=== PATIENT | female | born 1995 | race Caucasian/White ===

== ENCOUNTER 2022-05-17 09:20 | Outpatient (CLI) | payer OTHER ==
[~2022-05-17] VITALS: Ht 170.2 cm; Wt 93.6 kg
[2022-05-17] MEDS ORDERED: ACET500P3 PO (10:20)
[2022-05-17] MEDS ORDERED: ACET-897 PO (10:20)
[2022-05-17 10:22] VITALS: BP 106/56
[2022-05-17] MEDS ORDERED: PRENTAB9 PO (10:22)
[2022-05-17 11:20] LABS: APPEARANCE, URINE HAZY (CLEAR); BACTERIA, URINE AUTO 1+ (NEGATIVE); BILIRUBIN, URINE AUTO NEGATIVE (NEGATIVE); BLOOD, URINE BLOOD NEGATIVE (NEGATIVE); COLOR, URINE YELLOW (YELLOW); GLUCOSE, URINE (UA) AUTO NEGATIVE (NEGATIVE); KETONE, URINE AUTO 1+ mg/dL (NEGATIVE); LEUKOCYTE ESTERASE, URINE AUTO 3+ (NEGATIVE); MUCUS, URINE SMALL (NEGATIVE); NITRITE, URINE AUTO NEGATIVE (NEGATIVE); PROTEIN, URINE AUTO NEGATIVE (NEGATIVE); RBC, URINE AUTO 1 /HPF (0-3); SPECIFIC GRAVITY URINE AUTO 1.016 (1.002-1.035); SQUAMOUS EPITHELIAL CELL UR AU 3 /HPF (0-6); UROBILINOGEN, URINE AUTO 0.2 mg/dL (0.0-2.0); WBC, URINE AUTO 9 /HPF (0-3)
[2022-05-17] MEDS ORDERED: CYCLOBENZAPRINE 10MG TABLET PO ONE (12:00)
== END 2022-05-17 12:00 | disposition home or self-care (01) ==
LOC: M LDO 09:20
PROVIDERS: ATTEND Obstetrics & Gynecology
DX: O26.892 Other specified pregnancy related conditions, second trimester (principal); M54.50 Low back pain, unspecified; Z3A.26 26 weeks gestation of pregnancy
CPT/HCPCS: 59025; 81001; 87086; G0463

== ENCOUNTER 2022-08-14 02:13 | Inpatient (IN) | payer OTHER ==
[2022-08-14] VITALS (9 sets, daily range): BP systolic 114–154; BP diastolic 61–87
[~2022-08-14] VITALS: Ht 177.8 cm; Wt 100.2 kg
[~2022-08-14 02:13] MED LIST: ACET-897 PO; ACET500P3 PO; PRENTAB9 PO
[2022-08-14] MEDS ORDERED: LR 1,000 ML IV SCH ×2 (04:35→06:05)
[2022-08-14] MEDS ORDERED: LACTATED RINGER'S 1000 ML IV ONE (04:35)
[2022-08-14] MEDS ORDERED: OXYTOCIN INJ 10 UNITS/ML VIAL (J2590) IV PRN (04:35)
[2022-08-14] MEDS ORDERED: TRANEXAMIC ACID INJection 1,000 MG in NS 100 ML IV PRN (04:35)
[2022-08-14] MEDS ORDERED: OXYTOCIN DRIP 30 UNITS in IV 1 EA IV PRN ×4 (04:35)
[2022-08-14] MEDS ORDERED: METHYLERGONOVINE MALEATE 0.2 MG/ML VIAL (J2210) IM PRN ×2 (04:35→06:05)
[2022-08-14 05:07] LABS: HEMATOCRIT 37.3 % (36.0-47.0); HEMOGLOBIN 12.5 g/dl (12.0-15.5); MEAN CORPUSCULAR HEMOGLOBIN 31.3 pg (27.0-33.0); MEAN CORPUSCULAR HGB CONC 33.5 g/dl (32.0-36.5); MEAN CORPUSCULAR VOLUME 93.5 fl (80.0-96.0); PLATELET COUNT, AUTOMATED 162 10^3/uL (150-450); RED BLOOD COUNT 3.99 10^6/uL (4.00-5.40); WHITE BLOOD COUNT 10.3 10^3/uL (4.0-10.0)
[2022-08-14 05:30] LABS: CORD GAS ABE V -3.2; CORD GAS HCO3 V 22.4 MEQ/L; CORD GAS O2 SAT V 74.2 %; CORD GAS PCO2 V 42.1 mmHg; CORD GAS PH V 7.343 UNITS; CORD GAS PO2 V 30.2 mmHg; CORD GAS SBC V 21.3 MEQ/L; CORD GAS TCO2 V 23.6 MEQ/L
[2022-08-14 05:31] LABS: CORD GAS ABE A -8.7; CORD GAS HCO3 A 20.9 MEQ/L; CORD GAS O2 SAT A 15.1 %; CORD GAS PCO2 A 61.5 mmHg; CORD GAS PH A 7.15 UNITS; CORD GAS PO2 A 13.3 mmHg; CORD GAS SBC A 15.9 MEQ/L; CORD GAS TCO2 A 22.8 MEQ/L
[2022-08-14] MEDS ORDERED: OXYTOCIN DRIP 30 UNITS in IV 1 EA IV ONE (06:05)
[2022-08-14] MEDS ORDERED: DIBUCAINE 1% OINTMENT 30GM TOP PRN (06:05)
[2022-08-14] MEDS ORDERED: OXYTOCIN DRIP 30 UNITS in IV 1 EA IV SCH (06:05)
[2022-08-14] MEDS ORDERED: IBUPROFEN 600MG TAB PO PRN (06:05)
[2022-08-14] MEDS ORDERED: ANUSOL HC CREAM 30GM TOP PRN (06:05)
[2022-08-14] MEDS ORDERED: ACETAMINOPHEN 500 MG TAB PO PRN (06:05)
[2022-08-14] MEDS ORDERED: ACETAMINOPHEN TAB 650MG DOSE (2X325MG) PO PRN (06:05)
[2022-08-14] MEDS ORDERED: RHOGAM 300 MCG (1500 IU) INJ (J2790) IM SCH (06:05)
[2022-08-14] MEDS ORDERED: METHYLERGONOVINE MALEATE 0.2 MG TAB PO PRN (06:05)
[2022-08-14] MEDS ORDERED: DOCUSATE SODIUM 100MG CAPSULE PO PRN (06:05)
[2022-08-14] MEDS ORDERED: MOM 30ML SUSPENSION UDC PO PRN (06:05)
[2022-08-14] MEDS ORDERED: OXYTOCIN INJ 10 UNITS/ML VIAL (J2590) IV ONE (06:05)
[2022-08-14] MEDS ORDERED: HOME MED LIST COMPLETE! XX SCH (08:45)
[2022-08-14] MEDS: PRENATAL VITAMINS CHEWABLE TABLET PO SCH (09:50)
[2022-08-15 05:51] VITALS: BP 128/60
[2022-08-15 07:30] LABS: HEMATOCRIT 32.7 % (36.0-47.0); HEMOGLOBIN 10.6 g/dl (12.0-15.5); MEAN CORPUSCULAR HEMOGLOBIN 30.9 pg (27.0-33.0); MEAN CORPUSCULAR HGB CONC 32.4 g/dl (32.0-36.5); MEAN CORPUSCULAR VOLUME 95.3 fl (80.0-96.0); PLATELET COUNT, AUTOMATED 129 10^3/uL (150-450); RED BLOOD COUNT 3.43 10^6/uL (4.00-5.40); WHITE BLOOD COUNT 9.1 10^3/uL (4.0-10.0)
[2022-08-15 07:36] LABS: GC DNA AMPLIFICATION NEGATIVE (NEGATIVE)
[2022-08-15] MEDS: PRENATAL VITAMINS CHEWABLE TABLET PO SCH (08:34)
[2022-08-15] MEDS ORDERED: IBUP-1022 PO (09:01)
[2022-08-16] MEDS ORDERED: MEASLES,MUMPS,RUBELLA VACCINE INJ (MMR-II) (90707) SC.IMMUN ONE (09:00)
== END 2022-08-15 13:40 | disposition home or self-care (01) | DRG 806 ==
LOC: M LDO 02:13 → M LDI 04:24 → M OBS 09:08
PROVIDERS: ADMIT Obstetrics & Gynecology; ATTEND Obstetrics & Gynecology
PROC: 10E0XZZ Delivery of Products of Conception, External Approach (ICD-10-PCS; principal; 2022-08-14)
PROC: 0UQMXZZ Repair Vulva, External Approach (ICD-10-PCS; 2022-08-14)
DX: O69.1XX0 Labor and delivery complicated by cord around neck, with compression, not applicable or unspecified (principal); Z37.0 Single live birth; O72.1 Other immediate postpartum hemorrhage; Z3A.39 39 weeks gestation of pregnancy; O40.3XX0 Polyhydramnios, third trimester, not applicable or unspecified; O77.0 Labor and delivery complicated by meconium in amniotic fluid; O62.3 Precipitate labor; O71.89 Other specified obstetric trauma